=== PATIENT | male | born 1940 | race Caucasian/White ===

== ENCOUNTER 2020-05-26 13:50 | Outpatient (CLI) | payer MEDICARE, SELFPAY ==
--- NOTE | ~2020-05-26 | XR_ITS ---
XR lumbar spine 2-3V 05/26/2020 14:06 Indication: Low back pain Procedure: 3 views lumbar spine Comparison: No prior studies for comparison. Findings: There is disc narrowing at all lumbar levels with the exception of L5-S1. There is vacuum p henomenon L1-2. No acute fracture or traumatic malalignment. No evidence for spondylolisthesis. There is mild lower lumbar facet hypertrophy. There is atherosclerosis of the aorta. Sacral foramen are sy mmetric. Impression: 1: Mild-moderate lumbar spondylosis. Reviewed, dictated and finalized at location B. Impression: 1: Mild-moderate lumbar spondylosis.
== END 2020-05-26 13:51 | disposition home or self-care (01) ==
LOC: ANHIMG 13:55
PROVIDERS: PCP Family Medicine; Visit Provider Family Medicine
DX: M54.31 Sciatica, right side (principal); M47.816 Spondylosis without myelopathy or radiculopathy, lumbar region
CPT/HCPCS: 72100

== ENCOUNTER → 2020-08-15 10:21 | Outpatient (CLI) | payer MEDICARE, SELFPAY ==
--- NOTE | ~2020-08-15 | MR_ITS ---
EXAMINATION: MR lumbar spine wo con DATE: 08/15/2020 11:54 INDICATION: Right hip and buttock and leg pain. TECHNIQUE: Magnetic resonance imaging (MRI) of the lumbar spine was performed without intravenous con trast. Sequences included sagittal T2-weighted FSE, sagittal T2-weighted FS FSE, sagittal T1-weighted FSE, and axial T2-weighted FSE. COMPARISON: Lumbar spine radiographs 05/26/2020 FINDINGS: Bone alignment is normal. There is mild chronic anterior wedging of T12-L2 vertebral bodies . There is moderately decreased disc height at L1-L2 and L2-L3, mildly decreased disc height at L3-L4 , and moderately decreased disc height at L4-L5. The distal spinal cord signal intensity is normal. T he conus medullaris is at L1. The following disc levels are specifically discussed: L1-L2: The disc is bulging and has an annular fissure. There is mild bilateral facet joint osteoarthr itis. There is moderate bilateral neural foraminal stenosis. There is mild central canal stenosis. L2-L3: The disc is bulging and has an annular fissure. There is mild bilateral facet joint osteoarthr itis. There is moderate bilateral neural foraminal stenosis. There is mild central canal stenosis. L3-L4: The disc is bulging and has an annular fissure. There is mild bilateral facet joint osteoarthr itis. There is mild right and moderate left neural foraminal stenosis. There is mild central canal st enosis. L4-L5: The disc is bulging and has an annular fissure. There is moderate bilateral facet joint osteoa rthritis. There is moderate bilateral neural foraminal stenosis. There is severe central canal stenos is. L5-S1: The disc is bulging. There is severe bilateral facet joint osteoarthritis. There is mild bilat eral neural foraminal stenosis. There is mild central canal stenosis. IMPRESSION: 1. Moderate lumbar spondylosis. Reviewed, dictated and finalized at location A.
== END ==
PROVIDERS: PCP Family Medicine; Visit Provider Nurse Practitioner Family
DX: M47.896 Other spondylosis, lumbar region (principal)
CPT/HCPCS: 72148

== ENCOUNTER → 2021-04-17 12:01 | Outpatient (CLI) | payer MEDICARE, SELFPAY ==
--- NOTE | ~2021-04-17 | US_ITS ---
US axilla LT 04/17/2021 12:22 Indication: Left axillary lump Procedure: High-resolution ultrasound of the left axilla Comparison: No prior studies for comparison. Findings: There are normal-appearing left axillary lymph nodes, largest measuring 1.3 cm, all contain ing normal fatty hilum. No suspicious masses are identified. Impression: 1: Normal-appearing left axillary lymph nodes measuring up to 1.3 cm. BI-RADS CATEGORY 2 - BENIGN FINDINGS Reviewed, dictated and finalized at location A. Impression: 1: Normal-appearing left axillary lymph nodes measuring up to 1.3 cm. BI-RADS CATEGORY 2 - BENIGN FINDINGS
== END ==
PROVIDERS: PCP Family Medicine; Visit Provider Surgery
DX: R22.32 Localized swelling, mass and lump, left upper limb (principal)
CPT/HCPCS: 76882

== ENCOUNTER 2021-10-20 12:43 | Outpatient (CLI) | payer MEDICARE, SELFPAY ==
--- NOTE | ~2021-10-20 | US_ITS ---
EXAMINATION: US abdomen complete DATE: 10/20/2021 13:14 INDICATION: Other secondary thrombocytopenia TECHNIQUE: Multiple grayscale and Doppler ultrasound images of the abdomen were obtained. COMPARISON: None available FINDINGS: Bowel gas obscures visualization of the pancreas. The visualized portions of the pancreas a re unremarkable. The liver demonstrates increased echogenicity, heterogenous echotexture, and decreas ed through transmission. No surface nodularity. Normal hepatopetal flow in the main portal vein. The gallbladder is surgically absent. The normal postcholecystectomy common bile duct measures 7 mm. Ther e was no sonographic Hawk sign. The visualized portions of the aorta and inferior vena cava are nor mal. The right kidney measures 11.8 x 4.1 x 4.4 cm. The left kidney measures 10.9 x 4.3 x 5.8 cm. The kidn eys demonstrate normal parenchymal echogenicity. There is no hydronephrosis. The spleen is normal in appearance and measures 9.6 cm. IMPRESSION: 1. Diffuse hepatic steatosis. Reviewed, dictated and finalized at location A. 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
== END 2021-10-20 12:44 | disposition home or self-care (01) ==
PROVIDERS: PCP Family Medicine; Visit Provider Internal Medicine Hematology & Oncology
DX: D69.59 Other secondary thrombocytopenia (principal); K76.0 Fatty (change of) liver, not elsewhere classified
CPT/HCPCS: 76700

== ENCOUNTER 2021-11-05 01:23 | Day surgery (SDC) | payer MEDICARE, SELFPAY ==
[2021-11-04 16:02] VITALS: BMI 25.4
--- NOTE | ~2021-11-05 | BM_ITS ---
EXAMINATION: CCL bone marrow asp w bx diag DATE: 11/05/2021 09:40 INDICATION: Thrombocytopenia. TECHNIQUE: A time-out was performed to verify the patient's name, date of , and procedure to b e performed. The procedure including the risks, benefits, and alternatives was discussed with the pat ient. Risks discussed included bleeding and infection. The patient understood the risks and agreed to proceed. The skin overlying the left ilium was prepped and draped in usual sterile fashion. Anesth etic was administered with 1% lidocaine subcutaneously. Moderate sedation was achieved with 1 mg Vers ed IV and 50 mcg fentanyl IV. An 11 gauge needle was inserted into the ilium with fluoroscopic agustin nce. Bone marrow was aspirated. An 8 gauge needle was then inserted into the ilium with fluoroscopic guidance. A core bone marrow biopsy was obtained. There were no immediate complications. Fluoroscopy exposure time was 0.1 minutes. The total number of images was 12. FINDINGS: Real-time fluoroscopy demonstrates a marker overlying the left posterior superior iliac spi ne. IMPRESSION: 1. Fluoro-guided bone marrow aspiration. 2. Fluoro-guided bone marrow core biopsy. Reviewed, dictated and finalized at location B. CHECKER
[2021-11-05 07:43] VITALS: BP 157/67; PULSE 113; RESP 13; TEMP 36.4; O2SAT 97; BMI 22.8
[2021-11-05 08:01] LABS: Hematocrit 45.1 % (42.0-52.0); Hemoglobin 15.4 g/dL (14.0-18.0); Immature Platelet Fraction Pct 11.3 % (0.9-11.2); Mean Corpuscular HGB Conc 34.1 g/dl (32-36); Mean Corpuscular Hemoglobin 31.6 pg (26-34); Mean Corpuscular Volume 92.6 fl (80-100); Mean Platelet Volume 11.3 fl (7.4-10.4); Platelet Count Result 125 k/mm3 (150-375); Red Blood Count 4.87 M/mm3 (4.6-6.20); Red Cell Distribution Width 12.8 % (11.5-14.5); White Blood Count 21.2 K/mm3 (4.5-10.0)
[2021-11-05 08:08] LABS: Prothrombin Time 12.6 Seconds (11.1-14.7)
[2021-11-05 08:29] LABS: Atypical Lymphocytes Present; Band Neutrophils Percent 3 % (0-6); Lymphocytes Absolute Manual 3.39 K/mm3 (1.1-4.5); Metamyelocytes Percent 7 %; Monocytes Percent Manual 9 % (3-9); Myelocytes Percent 1 %; Neutrophils Percent Manual 64 % (46-73); Total Cells Counted 100
[2021-11-05 08:30] LABS: Anisocytosis 2+ (NORMAL); Tear Drop Cells 1+ (NORMAL)
--- NOTE | 2021-11-05 09:20 | WPDMODSED ---
Moderate Sedation Note-Pt Data Patient Data Diagnosis: Thrombocytopenia. Present Complaint: Thrombocytopenia. Procedure to be performed/Plan: Fluoro-guided bone marrow biopsy of left ilium. Allergies Allergy/AdvReac Type Severity Reaction Status Date / Time No Known Allergies Allergy Verified 11/05/21 07:43 Home Medications Medication Instructions Recorded Confirmed Type aspirin 81 mg tablet,delayed 81 mg PO DAILY 10/23/19 11/04/21 History release cholecalciferol (vitamin D3) 25 25 mcg PO DAILY 11/03/20 11/04/21 History mcg (1,000 unit) capsule blood sugar diagnostic See Rx Instructions .ROUTE 11/04/20 11/04/21 Rx .COMPLEX #300 strip blood-glucose meter #1 ea 11/04/20 11/04/21 Rx amlodipine 5 mg tablet 5 mg PO DAILY #90 tablet 06/29/21 11/04/21 Rx lisinopril 10 1 tablet PO DAILY #90 tablet 06/29/21 11/04/21 Rx mg-hydrochlorothiazide 12.5 mg tablet omeprazole 20 mg capsule,delayed 20 mg PO DAILY #90 cap 06/29/21 11/04/21 Rx release lancets 33 gauge #100 ea 07/31/21 11/04/21 Rx atorvastatin 20 mg tablet 20 mg PO QHS #90 tablet 08/24/21 11/04/21 Rx diazepam 5 mg tablet 5 mg PO DAILY PRN #90 tablet 09/08/21 11/04/21 Rx metformin 500 mg tablet,extended 1,000 mg PO BID #360 tablet 10/26/21 11/04/21 Rx release 24 hr Sedation/Anesthesia: No previous sedation/anesthesia problems (including family history). [facility] Past Medical History Medical History Anxiety CKD (chronic kidney disease) stage 3, GFR 30-59 ml/min 02/27/2019 Deviated septum Gallstones GERD without esophagitis History of stroke Pneumonia Type 2 diabetes mellitus without complications Surgical History Surgical History History of cholecystectomy (~2016) History of knee surgery (~1987) History of nasal surgery (~2007) Deviated Septum History of shoulder surgery (~1997) Right 1997, Left 1999, Left again 2016 Family History Family History Father , age 71 Hypertension Acute myocardial infarction Family history of cardiovascular disease Mother , age 90 Hypertension Family history of cardiovascular disease Social History Social History Years smoked: 5 Smoking status: Never smoker Second hand tobacco smoke exposure: No Smoking end date: 11/14/1965 Alcohol intake: never Substance use: never Substance use type: does not use Living arrangements: alone Gender identity (if verbalized by the patient): Male Mod Sed Physical Exam Physical Exam Pre Procedural Exam: Normal: Lungs, Heart Rate, Heart Rhythm and Abdomen Hours since solid foods: 12 Hours since liquid intake: 12 Mallampati Classification: class II Internal Medicine - PN: Obj Da Vital Signs Vital Signs: Vital Signs - 24 hr 11/05/21 07:43 Temperature 36.4 C L Pulse Rate 113 H Respiratory Rate 13 Blood Pressure 157/67 H Pulse Oximetry 97 Labs CBC & Chem 7: 11/05/21 07:39 Labs: Laboratory Results - last 24 hr 11/05/21 11/05/21 07:39 07:39 WBC 21.2 H RBC 4.87 Hgb 15.4 Hct 45.1 MCV 92.6 MCH 31.6 MCHC 34.1 RDW 12.8 Plt Count 125 L MPV 11.3 H Immature Gran % (Auto) Not Reportable Neut % (Auto) Not Reportable Lymph % (Auto) Not Reportable Divide % (Auto) Not Reportable Eos % (Auto) Not Reportable Baso % (Auto) Not Reportable Lymph # (Auto) Not Reportable Divide # (Auto) Not Reportable Eos # (Auto) Not Reportable Baso # (Auto) Not Reportable Abs Immat Gran (auto) Not Reportable Absolute Neuts (auto) Not Reportable Absolute Nucleated RBC Not Reportable Total Counted 100 Neutrophils % (Manual) 64 Band Neutrophils % 3 Lymphocytes % (Manual) 16.0 L Monocytes % (Manual) 9 Metamyelocytes % 7 Myelocytes % 1 Nucleated
[2021-11-05 09:30] VITALS: BP 147/67; PULSE 100; RESP 16; TEMP 36.7; O2SAT 97
[2021-11-05 09:45] VITALS: BP 142/101; PULSE 101; RESP 18; O2SAT 96
[2021-11-05 10:00] VITALS: BP 144/96; PULSE 103; RESP 18; O2SAT 97
[2021-11-05 10:15] VITALS: BP 151/106; PULSE 99; RESP 16; O2SAT 97
[2021-11-05 10:30] VITALS: BP 139/99; PULSE 91; RESP 16; O2SAT 97
== END 2021-11-05 10:47 | disposition home or self-care (01) ==
PROVIDERS: PCP Family Medicine; Referring Provider Internal Medicine Hematology & Oncology; Visit Provider Radiology Diagnostic Radiology
DX: D69.6 Thrombocytopenia, unspecified (principal); N18.30 Chronic kidney disease, stage 3 unspecified; E11.22 Type 2 diabetes mellitus with diabetic chronic kidney disease; K21.9 Gastro-esophageal reflux disease without esophagitis; F41.9 Anxiety disorder, unspecified; Z79.82 Long term (current) use of aspirin; Z79.84 Long term (current) use of oral hypoglycemic drugs
CPT/HCPCS: 36415; 38222; 85025; 85055; 85610; 88184; 88185; 88305; 88311; 88313; 88341; 88342; J1642; J1644; J2250; J3010; J7040

== ENCOUNTER 2021-12-10 11:56 | Outpatient (CLI) | payer MEDICARE, SELFPAY ==
--- NOTE | ~2021-12-10 | XR_ITS ---
EXAMINATION: XR chest 2V EXAM DATE: 12/10/2021 12:17 INDICATION: R06.02 - Shortness of breath, Cough X1 Week. TECHNIQUE: Frontal and lateral projections of the chest obtained and reviewed. There is no prior jerrod dy for comparison. FINDINGS: Moderate chronic hyperinflation. Right basilar segmental airspace disease, appearance sugg ests possibility of acute pneumonia but please clinically correlate and obtain follow-up chest x-ray in 2-4 weeks. Heart is upper limits of normal in size. There is no pneumothorax suspected. Small righ t pleural effusion. There are mild bony degenerative changes. IMPRESSION: Segmental right lower lobe airspace disease, appearance favors bacterial pneumonia. Other etiologies or chronic process not excludable. Follow-up recommended. Reviewed, dictated and finalized at location A. K MANAGER IMPRESSION: Segmental right lower lobe airspace disease, appearance favors bact erial pneumonia. Other etiologies or chronic process not excludable. Follow-up recommended.
== END 2021-12-10 11:57 | disposition home or self-care (01) ==
PROVIDERS: PCP Family Medicine; Visit Provider Family Medicine
DX: R06.02 Shortness of breath (principal); R05.9 Cough, unspecified; R91.8 Other nonspecific abnormal finding of lung field
CPT/HCPCS: 71046

== ENCOUNTER 2022-01-01 10:56 | Outpatient (CLI) | payer MEDICARE, SELFPAY ==
[2022-01-01 11:11] LABS: Basophils Absolute Auto 0.1 K/mm3 (0.0-0.1); Basophils Percent Auto 0.9 % (0.2-1.2); Eosinophils Absolute Auto 0.1 K/mm3 (0-0.3); Eosinophils Percent Auto 1.7 % (0-4.4); Hematocrit 45.3 % (42.0-52.0); Hemoglobin 14.3 g/dL (14.0-18.0); Immature Granulocyte Absolute 0.07 K/mm3 (0.00-0.031); Immature Granulocyte Percent A 0.9 % (0-0.5); Immature Platelet Fraction Pct 7.1 % (0.9-11.2); Lymphocytes Absolute Auto 0.86 K/mm3 (0.9-3.2); Lymphocytes Percent Auto 11.6 % (18.3-44.2); Mean Corpuscular HGB Conc 31.6 g/dl (32-36); Mean Corpuscular Hemoglobin 30.7 pg (26-34); Mean Corpuscular Volume 97.2 fl (80-100); Mean Platelet Volume 10.5 fl (7.4-10.4); Monocytes Absolute Auto 0.9 K/mm3 (0.1-0.6); Neutrophils Absolute Auto 5.4 K/mm3 (1.3-6.7); Neutrophils Percent Auto 72.9 % (45.5-73.1); Platelet Count Result 84 k/mm3 (150-375); Red Blood Count 4.66 M/mm3 (4.6-6.20); Red Cell Distribution Width 13.5 % (11.5-14.5); White Blood Count 7.4 K/mm3 (4.5-10.0)
== END 2022-01-01 10:57 | disposition home or self-care (01) ==
LOC: ANHLAB 10:56
PROVIDERS: PCP Family Medicine; Visit Provider Internal Medicine Hematology & Oncology
DX: D69.59 Other secondary thrombocytopenia (principal)
CPT/HCPCS: 36415; 85025; 85055

== ENCOUNTER 2022-01-01 12:00 | Outpatient (CLI) | payer MEDICARE, SELFPAY ==
--- NOTE | ~2022-01-01 | CT_ITS ---
EXAMINATION: CTA chest PE protocol DATE: 01/01/2022 12:37 INDICATION: Shortness of breath TECHNIQUE: Computed tomography angiography (CTA) of the chest was performed with 100 mL Omnipaque-350 intravenous contrast timed to evaluate the pulmonary arteries. Coronal maximum intensity projection 3D-reconstructions were created by the technologist. The dose-length product (DLP) was 373.48 mGy-cm. Automated exposure control and iterative reconstruction technique were employed. COMPARISON: None. FINDINGS: The pulmonary arteries are well-opacified. No pulmonary embolism is identified. There is ca lcified pleural thickening in the posterolateral aspect of the right lower lobe with adjacent airspac e opacity. There is no pleural effusion or pneumothorax. No pathologically enlarged thoracic lymph no alejandro are identified. The heart size is normal. Calcified coronary artery atherosclerosis is noted. The gallbladder is surgically absent. IMPRESSION: 1. No pulmonary embolism or acute cardiopulmonary abnormality. 2. Pleural-based opacity of the posterolateral left lower lobe likely reflects rounded atelectasis. Reviewed, dictated and finalized at location A. 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
[2022-01-01 12:30] LABS: Estimated Glomerular Filt Rate 45
== END 2022-01-01 12:01 | disposition home or self-care (01) ==
PROVIDERS: PCP Family Medicine; Visit Provider Internal Medicine Hematology & Oncology
DX: R06.00 Dyspnea, unspecified (principal); R91.8 Other nonspecific abnormal finding of lung field
CPT/HCPCS: 36415; 71275; 85025; 85055; Q9967

== ENCOUNTER 2022-01-15 09:56 | Outpatient (CLI) | payer MEDICARE, SELFPAY ==
[2022-01-15 10:16] LABS: Hematocrit 43.7 % (42.0-52.0); Hemoglobin 13.7 g/dL (14.0-18.0); Mean Corpuscular HGB Conc 31.4 g/dl (32-36); Mean Corpuscular Hemoglobin 30.4 pg (26-34); Mean Corpuscular Volume 97.1 fl (80-100); Mean Platelet Volume 10.5 fl (7.4-10.4); Platelet Count Result 154 k/mm3 (150-375); Red Cell Distribution Width 13.6 % (11.5-14.5); White Blood Count 5.8 K/mm3 (4.5-10.0)
[2022-01-15 10:20] LABS: Blood Urea Nitrogen 16 mg/dL (8-26); Carbon Dioxide 27 mmol/L (22-30); Chloride 98 mmol/L (98-109); Estimated Glomerular Filt Rate 49; Glucose 146 mg/dL (70-105); Potassium 3.8 mmol/L (3.5-4.9); Sodium 141 mmol/L (138-146)
[2022-01-15 13:43] LABS: Alanine Aminotransferase 18 U/L (4-50); Albumin Level 4.4 g/dL (3.5-5.1); Alkaline Phosphatase 51 U/L (38-126); Anion Gap 7 mmol/L (8-16); Aspartate Amino Transferase 23 U/L (17-59); Bilirubin,Total 1.1 mg/dL (0.2-1.3); Blood Urea Nitrogen 16 mg/dL (9-20); Carbon Dioxide 28 mmol/L (22-30); Chloride 100 mmol/L (98-107); Estimated Glomerular Filt Rate 53; Glucose 151 mg/dL (65-110); Potassium 3.9 mmol/L (3.4-5.0); Sodium 135 mmol/L (137-145)
== END 2022-01-15 09:57 | disposition home or self-care (01) ==
LOC: ANHLAB 09:58
PROVIDERS: PCP Family Medicine; Visit Provider Internal Medicine Hematology & Oncology
DX: D69.3 Immune thrombocytopenic purpura (principal)
CPT/HCPCS: 36415; 80053; 85027

== ENCOUNTER 2022-02-11 10:16 | Outpatient (CLI) | payer MEDICARE, SELFPAY ==
[2022-02-11 10:31] LABS: Blood Urea Nitrogen 16 mg/dL (8-26); Carbon Dioxide 28 mmol/L (22-30); Chloride 100 mmol/L (98-109); Estimated Glomerular Filt Rate 53; Glucose 159 mg/dL (70-105); Potassium 3.6 mmol/L (3.5-4.9); Sodium 142 mmol/L (138-146)
[2022-02-11 10:31] LABS: Basophils Absolute Auto 0.1 K/mm3 (0.0-0.1); Basophils Percent Auto 1.5 % (0.2-1.2); Eosinophils Absolute Auto 0.3 K/mm3 (0-0.3); Eosinophils Percent Auto 4.6 % (0-4.4); Hematocrit 45.4 % (42.0-52.0); Hemoglobin 14.2 g/dL (14.0-18.0); Immature Granulocyte Absolute 0.05 K/mm3 (0.00-0.031); Immature Granulocyte Percent A 0.9 % (0-0.5); Immature Platelet Fraction Pct 5.4 % (0.9-11.2); Lymphocytes Absolute Auto 0.95 K/mm3 (0.9-3.2); Lymphocytes Percent Auto 17.3 % (18.3-44.2); Mean Corpuscular HGB Conc 31.3 g/dl (32-36); Mean Corpuscular Hemoglobin 30.7 pg (26-34); Mean Corpuscular Volume 98.1 fl (80-100); Mean Platelet Volume 9.9 fl (7.4-10.4); Monocytes Absolute Auto 0.7 K/mm3 (0.1-0.6); Monocytes Percent Auto 12.8 % (2.6-8.5); Neutrophils Absolute Auto 3.5 K/mm3 (1.3-6.7); Neutrophils Percent Auto 62.9 % (45.5-73.1); Platelet Count Result 108 k/mm3 (150-375); Red Blood Count 4.63 M/mm3 (4.6-6.20); Red Cell Distribution Width 13.7 % (11.5-14.5); White Blood Count 5.5 K/mm3 (4.5-10.0)
[2022-02-11 11:10] LABS: Alanine Aminotransferase 19 U/L (4-50); Albumin Level 4.3 g/dL (3.5-5.1); Alkaline Phosphatase 56 U/L (38-126); Anion Gap 11 mmol/L (8-16); Aspartate Amino Transferase 49 U/L (17-59); Bilirubin,Total 1.4 mg/dL (0.2-1.3); Blood Urea Nitrogen 16 mg/dL (9-20); Calcium 8.9 mg/dL (8.4-10.2); Carbon Dioxide 27 mmol/L (22-30); Chloride 101 mmol/L (98-107); Estimated Glomerular Filt Rate 53; Glucose 159 mg/dL (65-110); Potassium 3.6 mmol/L (3.4-5.0); Sodium 139 mmol/L (137-145)
== END 2022-02-11 10:17 | disposition home or self-care (01) ==
LOC: ANHLAB 10:17
PROVIDERS: PCP Family Medicine; Visit Provider Internal Medicine Hematology & Oncology
DX: D69.3 Immune thrombocytopenic purpura (principal)
CPT/HCPCS: 36415; 80053; 85025; 85055

== ENCOUNTER 2022-03-18 12:20 | Outpatient (CLI) | payer MEDICARE, SELFPAY ==
[2022-03-18 12:39] LABS: Basophils Absolute Auto 0.1 K/mm3 (0.0-0.1); Basophils Percent Auto 1.3 % (0.2-1.2); Eosinophils Absolute Auto 0.2 K/mm3 (0-0.3); Eosinophils Percent Auto 3.3 % (0-4.4); Hematocrit 43.5 % (42.0-52.0); Hemoglobin 13.8 g/dL (14.0-18.0); Immature Granulocyte Absolute 0.03 K/mm3 (0.00-0.031); Immature Granulocyte Percent A 0.5 % (0-0.5); Immature Platelet Fraction Pct 7.6 % (0.9-11.2); Lymphocytes Absolute Auto 0.98 K/mm3 (0.9-3.2); Lymphocytes Percent Auto 15.6 % (18.3-44.2); Mean Corpuscular HGB Conc 31.7 g/dl (32-36); Mean Corpuscular Hemoglobin 30.4 pg (26-34); Mean Corpuscular Volume 95.8 fl (80-100); Mean Platelet Volume 10.8 fl (7.4-10.4); Monocytes Absolute Auto 0.8 K/mm3 (0.1-0.6); Monocytes Percent Auto 13.2 % (2.6-8.5); Neutrophils Absolute Auto 4.2 K/mm3 (1.3-6.7); Neutrophils Percent Auto 66.1 % (45.5-73.1); Platelet Count Result 73 k/mm3 (150-375); Red Blood Count 4.54 M/mm3 (4.6-6.20); Red Cell Distribution Width 13.5 % (11.5-14.5); White Blood Count 6.3 K/mm3 (4.5-10.0)
[2022-03-18 12:40] LABS: Blood Urea Nitrogen 18 mg/dL (8-26); Carbon Dioxide 29 mmol/L (22-30); Chloride 99 mmol/L (98-109); Estimated Glomerular Filt Rate 58; Glucose 121 mg/dL (70-105); Ionized Calcium (POC) 1.24 mmol/L (1.11-1.31); Potassium 3.9 mmol/L (3.5-4.9); Sodium 140 mmol/L (138-146)
[2022-03-19 06:19] LABS: Alanine Aminotransferase 20 U/L (4-50); Albumin Level 4.1 g/dL (3.5-5.1); Alkaline Phosphatase 54 U/L (38-126); Anion Gap 9 mmol/L (8-16); Aspartate Amino Transferase 21 U/L (17-59); Bilirubin,Total 1.1 mg/dL (0.2-1.3); Blood Urea Nitrogen 18 mg/dL (9-20); Carbon Dioxide 27 mmol/L (22-30); Chloride 102 mmol/L (98-107); Estimated Glomerular Filt Rate 58; Glucose 120 mg/dL (65-110); Potassium 4.1 mmol/L (3.4-5.0); Sodium 138 mmol/L (137-145)
== END 2022-03-18 12:21 | disposition home or self-care (01) ==
LOC: ANHLAB 12:21
PROVIDERS: PCP Family Medicine; Visit Provider Internal Medicine Hematology & Oncology
DX: D69.3 Immune thrombocytopenic purpura (principal)
CPT/HCPCS: 36415; 80047; 80053; 85025; 85055